=== PATIENT | male | born 1975 | race Caucasian/White ===

== ENCOUNTER 2018-02-01 04:50 | Emergency (ER) | payer MEDICAID ==
[~2018-02-01] VITALS: Ht 167.6 cm; Wt 86.2 kg
[2018-02-01] MEDS ORDERED: NAPROXEN 375MG TABLET PO ONE (07:45)
[2018-02-01] MEDS ORDERED: CYCLOBENZAPRINE 10MG TABLET PO ONE (07:45)
[2018-02-01 07:58] VITALS: BP 128/85
== END 2018-02-01 08:04 | disposition home or self-care (01) ==
LOC: ER 04:50
DX: S16.1XXA Strain of muscle, fascia and tendon at neck level, initial encounter (principal); V47.0XXA Car driver injured in collision with fixed or stationary object in nontraffic accident, initial encounter; Y93.89 Activity, other specified; Y92.411 Interstate highway as the place of occurrence of the external cause
CPT/HCPCS: 99283